=== PATIENT | female | born 1960 ===

== ENCOUNTER 2023-11-02 09:27 | Outpatient (CLI) | payer OTHER | END 2023-11-02 09:49 | disposition home or self-care (01) | LOC: MAMO-SONO 09:27 | DX: Z12.31 Encounter for screening mammogram for malignant neoplasm of breast (principal) ==

== ENCOUNTER 2024-12-25 09:35 | Outpatient (CLI) | payer OTHER | END 2024-12-25 09:41 | disposition home or self-care (01) | LOC: MAMO-SONO 09:35 | DX: N64.4 Mastodynia (principal); Z12.39 Encounter for other screening for malignant neoplasm of breast ==

== ENCOUNTER 2025-01-14 10:46 | Outpatient (CLI) | payer OTHER | END 2025-01-14 10:47 | disposition home or self-care (01) | LOC: NUCLEAR 10:46 | DX: M81.0 Age-related osteoporosis without current pathological fracture (principal) ==